=== PATIENT | female | born 1960 | race Native Hawaiian/Other Pacific Islander ===

== ENCOUNTER 2022-07-30 22:00 | Emergency (ER) | payer OTHER ==
[~2022-07-30] VITALS: Ht 157.5 cm; Wt 59.0 kg
[2022-07-30 22:45] LABS: PLATELET COUNT 418 K/uL (152-353)
[2022-07-30 22:52] LABS: POTASSIUM 3.4 mmol/L (3.6-5.2)
[2022-07-30 23:48] VITALS: BP 124/75; TEMP 98.1
[2022-07-31] MEDS ORDERED: LEXAPRO20 MG PO (11:02)
[2022-07-31] MEDS ORDERED: SIMV10TA PO (11:02)
[2022-07-31] MEDS ORDERED: SPIR50TA8 PO (11:03)
[2022-07-31] MEDS ORDERED: AMLODIPINE BESYLATE PO (11:03)
[2022-07-31] MEDS ORDERED: PROTONIX20 MG PO (11:03)
[2022-07-31] MEDS ORDERED: BUSPIRONE30 MG PO (11:05)
[2022-07-31] MEDS ORDERED: HYDR5TAB9 PO (11:06)
[2022-07-31] MEDS ORDERED: METHOCARBAMOL PO (11:06)
[2022-07-31] MEDS ORDERED: MELATONIN5 MG PO (11:07)
== END 2022-07-30 23:48 | disposition still patient (30) ==
LOC: ED 22:00
PROVIDERS: Emergency Medicine
DX: F32.A Depression, unspecified (principal); Z11.52 Encounter for screening for COVID-19; Z04.6 Encounter for general psychiatric examination, requested by authority
CPT/HCPCS: 36415; 80053; 81000; 85027; 87635; 93005; 99283; U0003